=== PATIENT | female | born 1990 | race Caucasian/White ===

== ENCOUNTER 2020-12-05 15:00 | Outpatient (CLI) | payer OTHER, SELFPAY | END 2020-12-05 15:01 | disposition home or self-care (01) | LOC: ANHCOVIDVC 15:01 | DX: Z23 Encounter for immunization (principal) | CPT/HCPCS: 0001A; 91300 ==

== ENCOUNTER 2020-12-26 14:55 | Outpatient (CLI) | payer OTHER, SELFPAY | END 2020-12-26 14:56 | disposition home or self-care (01) | LOC: ANHCOVIDVC 14:55 | DX: Z23 Encounter for immunization (principal) | CPT/HCPCS: 0002A; 91300 ==

== ENCOUNTER 2024-01-19 09:50 | Emergency (ER) | payer OTHER, SELFPAY ==
[2024-01-19] VITALS (15 sets, daily range): BP systolic 143–149; BP diastolic 98; PULSE 79–97; RESP 14–24; TEMP 36.8; O2SAT 97–100
--- NOTE | ~2024-01-19 | XR_ITS ---
EXAMINATION: XR chest 2V DATE: 01/19/2024 10:32 INDICATION: Left chest pain. TECHNIQUE: Frontal and lateral views of the chest were obtained. COMPARISON: None. FINDINGS: There is no pneumonia, pleural effusion, or pneumothorax. The heart size is normal. IMPRESSION: 1. No acute cardiopulmonary disease. Reviewed, dictated and finalized at location A.
--- NOTE | 2024-01-19 10:00 | ECG_ITS ---
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 Measurements Intervals [place] Rate: 81 P: 18 [place]: 156 QRS: 15 QRSD: 108 T: 2 QT: 377 QTc: 439 Interpretive Statements SINUS RHYTHM BORDERLINE R WAVE PROGRESSION, ANTERIOR LEADS HIGH LATERAL INFARCT, AGE INDETERMINATE BORDERLINE T WAVE ABNORMALITIES- ANTEROLAT/INF LEADS BASELINE ARTIFACT- I, II, III, AVR, AVL, AVF, V1-V2 BORDERLIEN ECG No previous ECG available for comparison Electronically Signed On 01-20-2024 08:50:42 CDT by Mick Peace D.O.
[2024-01-19 10:26] LABS: Basophils Percent Auto 0.5 % (0.2-1.2); Eosinophils Percent Auto 0.4 % (0-4.4); Hematocrit 37.6 % (37.0-47.0); Hemoglobin 12.5 g/dL (12.0-15.0); Immature Granulocyte Absolute 0.01 K/mm3 (0.00-0.031); Immature Granulocyte Percent A 0.1 % (0-0.5); Lymphocytes Absolute Auto 1.83 K/mm3 (0.9-3.2); Lymphocytes Percent Auto 22.5 % (18.3-44.2); Mean Corpuscular HGB Conc 33.2 g/dl (32-36); Mean Corpuscular Hemoglobin 30.9 pg (26-34); Mean Corpuscular Volume 92.8 fl (80-100); Mean Platelet Volume 10.3 fl (7.4-10.4); Monocytes Absolute Auto 0.4 K/mm3 (0.1-0.6); Monocytes Percent Auto 5.4 % (2.6-8.5); Neutrophils Absolute Auto 5.8 K/mm3 (1.3-6.7); Neutrophils Percent Auto 71.1 % (45.5-73.1); Platelet Count Result 336 k/mm3 (150-375); Red Blood Count 4.05 M/mm3 (4.2-5.4); Red Cell Distribution Width 12.4 % (11.5-14.5); White Blood Count 8.2 K/mm3 (4.5-10.0)
--- NOTE | 2024-01-19 10:30 | ED.CHESTPAIN ---
HPI - Chest Pain General Chief Complaint: Chest Pain Stated Complaint: upper left chest pain Time Seen by Provider: 01/19/24 10:01 Source: patient Mode of arrival: ambulatory Limitations: no limitations History of Present Illness HPI narrative: This is a 33 year old female that presents to the ER for left sided chest pain ongoing since last night. Reports she had an episode of vomiting after eating last night. Shortly after she noted some left sided chest discomfort. The pain is achy and intermittent in nature. No known alleviating or exacerbating factors. No other associated symptoms. Denies fever, cough, shortness of breath or lower extremity edema. Related Data Allergies Allergy/AdvReac Type Severity Reaction Status Date / Time No Known Allergies Allergy Verified 01/19/24 10:47 Review of Systems Review of Systems: CONSTITUTIONAL: Denies fever CARDIOVASCULAR: Reports chest pain. Denies edema. RESPIRATORY: Denies cough or dyspnea. GASTROINTESTINAL: Reports nausea and vomiting. Denies abdominal pain All systems reviewed & are unremarkable except as noted in HPI and below PMFSH Past Medical History Medical History (Updated 01/19/24 @ 12:25 by Adelita Middleton PA-C) No active medical problems Social History Social History (Updated 01/19/24 @ 10:43 by Adelita Middlteon PA-C) Smoking status: Never smoker Exam Narrative: GENERAL: Well-appearing, well-nourished, and in no acute distress. HEAD: Normocephalic, atraumatic. EYES: EOMI. NECK: Supple. No adenopathy or masses. No JVD CHEST: Clear to auscultation. No respiratory distress. No wheezes rales or rhonchi HEART: Regular rate and rhythm. No murmur heard. Normal peripheral pulses. ABDOMEN: Soft, nontender, nondistended, normal active bowel sounds. EXTREMITIES: Normal range of motion. No edema. SKIN: Warm, dry, no rash. NEURO: No focal deficits. Alert and oriented x3. PSYCH: Normal mood and affect Course Course Emergency Course: Patient and family updated on workup and agree with plan of care Vital Signs Vital signs: Vital Signs Temperature 98.2 F 01/19/24 09:54 Pulse Rate 93 01/19/24 09:54 Respiratory Rate 14 01/19/24 09:54 Blood Pressure 149/98 H 01/19/24 09:54 Pulse Oximetry 100 01/19/24 09:54 Oxygen Delivery Room Air 01/19/24 09:54 Temperature 98.2 F 01/19/24 09:54 Pulse Rate 93 01/19/24 09:54 Respiratory Rate 14 01/19/24 09:54 Blood Pressure 149/98 H 01/19/24 09:54 Pulse Oximetry 100 01/19/24 09:57 Oxygen Delivery Room Air 01/19/24 09:57 MDM - Chest Pain MDM Narrative Medical decision making narrative: Patient presents to the emergency department for left-sided chest pain ongoing since last night. She is afebrile and nontoxic appearing. Her vitals are stable. CBC without concerning findings. Metabolic panel with mild hypokalemia. Magnesium is normal. Patient's potassium was replaced. Lipase is normal. EKG without acute ST changes and baseline troponin is negative. Chest x-ray without acute cardiopulmonary abnormality. D-dimer is not elevated. Patient and family were updated on workup and agree with plan of care. Her heart score is 1. She is to follow up with primary provider. She was given warnings to return to the ER Differential Diagnosis Differential diagnosis: Likely stable angina, atypical chest pain, costochondritis and other ( muscle strain) Lab Data Attestation: I reviewed the patient's lab results. 01/19/24 10:21 01/19/24 10:21 Labs: Lab Results 01/19/24 Range/Units 10:21 WBC 8.2 (4.5-10.0) K/mm3 RBC 4.05 L (4.2-5.4) M/mm3 Hgb 12.5 (12.0-15.0) g/dL Hct 37.6 (37.0-47.0) % MCV 92.8 (80-100) fl MCH 30.9 (26-34) pg MCHC 33.2 (32-36) g/dl RDW 12.4 (11.5-14.5) % Plt Count 336 (150-375) k/mm3 MPV 10.3 (7.4-10.4) fl Immature Gran % (Auto) 0.1 (0-0.5) % Neut % (Auto) 71.1 (45.5-73.1) % Lymph % (Auto) 22.5
[2024-01-19 10:37] LABS: Alanine Aminotransferase 11 U/L (6-35); Albumin Level 4.8 g/dL (3.5-5.1); Alkaline Phosphatase 59 U/L (38-126); Anion Gap 10 mmol/L (4-12); Aspartate Amino Transferase 17 U/L (14-36); Bilirubin,Total 1.1 mg/dL (0.2-1.3); Blood Urea Nitrogen 7 mg/dL (7-17); Calcium 9.4 mg/dL (8.4-10.2); Carbon Dioxide 22 mmol/L (22-30); Chloride 109 mmol/L (98-107); Estimated CRCL calculation 186 ml/min; Estimated Glomerular Filt Rate > 60; Glucose 99 mg/dL (65-110); Lipase 43 U/L (23-300); Potassium 3.3 mmol/L (3.4-5.0); Sodium 141 mmol/L (137-145)
[2024-01-19 10:41] LABS: Prothrombin Time 13.6 Seconds (11.1-14.7)
[2024-01-19 10:42] LABS: Partial Thromboplastin Time 30.7 Seconds (22.3-36.8)
[2024-01-19] MEDS: Please add drug allergy info to patient profile. 1 EACH XX (10:47)
[2024-01-19 10:48] LABS: Troponin I < 0.012 ng/mL (0.000-0.034)
[2024-01-19] MEDS: POTASSIUM CHLORIDE 20 MEQ ER TABLET 40 MEQ PO (10:51)
[2024-01-19 11:30] LABS: D Dimer 0.35 ug/mL (<0.48)
== END 2024-01-19 12:31 | disposition home or self-care (01) ==
PROVIDERS: Student in an Organized Health Care Education/Training Program; Emergency Provider Physician Assistant; PCP Family Medicine
DX: R07.89 Other chest pain (principal); E87.6 Hypokalemia
CPT/HCPCS: 36415; 71046; 80053; 83690; 83735; 84484; 85025; 85380; 85610; 85730; 93005; 99284; A9270

== ENCOUNTER 2024-01-27 06:59 | Outpatient (CLI) | payer OTHER, SELFPAY ==
[2024-01-27 07:35] LABS: Cholesterol 188 mg/dL (0-200); HDL Direct 39 mg/dL; Triglycerides 152 mg/dL (<150)
[2024-01-27 07:45] LABS: LDL Cholesterol Direct 131 mg/dL
== END 2024-01-27 07:00 | disposition home or self-care (01) ==
LOC: ANHLAB 07:00
PROVIDERS: PCP Family Medicine; Visit Provider Family Medicine
DX: R07.9 Chest pain, unspecified (principal)
CPT/HCPCS: 36415; 80061

== ENCOUNTER 2024-03-22 07:31 | Outpatient (CLI) | payer OTHER, SELFPAY ==
--- NOTE | ~2024-03-22 | CT_ITS ---
Clinical Indication: Left chest pain CT Scan of the Chest with Contrast: Technique: Contiguous sections were acquired throughout the chest after intravenous administration of 75 cc of Omnipaque 350. Dose reduction technique was used on this scan by utilizing automated exposu re control and iterative reconstruction technique. The dose-length product (DLP) was 1108.30 mGy-cm. Findings: There is no evidence of any significant mediastinal, hilar or axillary lymphadenopathy. There is no f illing defect in the pulmonary arterial tree to suggest pulmonary embolus. There is no evidence of ao rtic dissection or aneurysm. There is no evidence of pleural or pericardial effusion. The lungs are clear. No pulmonary nodules or infiltrates are noted. Images through the upper abdomen reveal no abnormalities. There is multilevel endplate irregularity i n the thoracic spine with minimal loss of height. Impression: No evidence of pulmonary embolus, aortic dissection, or aortic aneurysm. Clear lungs. Possible Scheuermann's disease the thoracic spine. Reviewed, dictated and finalized at location . Impression: No evidence of pulmonary embolus, aortic dissection, or aortic aneurysm. Clear lungs. Possible Scheuermann's disease the thoracic spine.
== END 2024-03-22 07:32 | disposition home or self-care (01) ==
PROVIDERS: PCP Family Medicine; Visit Provider Family Medicine
DX: R07.9 Chest pain, unspecified (principal)
CPT/HCPCS: 71260; Q9967

== ENCOUNTER 2024-03-27 14:35 | Outpatient (CLI) | payer OTHER, SELFPAY ==
--- NOTE | ~2024-03-27 | MR_ITS ---
MRI of the left shoulder Technique: Axial proton-density fat-sat images, coronal proton density fat-sat and T2 fat-sat images, and sagittal T1-weighted and T2 fat-sat images were acquired. Clinical History: Pain Findings: No significant AC joint degenerative change present. Coracoclavicular, coracoacromial, and coracohumeral ligaments are intact. Supraspinatus and infraspinatus tendons are intact, without partial or full-thickness tear. Subscapul dea tendon intact with moderate tendinosis. Tendon of long head of the biceps is intact. No labral tear evident. Inferior glenohumeral ligament is intact. No degenerative change or effusion of the glenohumeral join t. No fluid distention of the subacromial/subdeltoid bursa. There is focal cystic enthesopathic bauer e at the rotator cuff insertion at the greater tuberosity. No muscle atrophy or edema. Impression: Moderate subscapularis tendinosis. No rotator cuff tear or labral tear evident. Reviewed, dictated and finalized at [facility]. Impression: Moderate subscapularis tendinosis. No rotator cuff tear or labral tear evident.
== END 2024-03-27 14:36 | disposition home or self-care (01) ==
LOC: ANHIMG 14:35
PROVIDERS: PCP Family Medicine; Visit Provider Family Medicine
DX: M67.814 Other specified disorders of tendon, left shoulder (principal); R07.9 Chest pain, unspecified
CPT/HCPCS: 73221

== ENCOUNTER 2024-03-30 12:02 | Outpatient (RCR) | payer OTHER, SELFPAY ==
--- NOTE | 2024-03-30 13:37 | OPREHPOC ---
Outpatient Therapy Plan of Care This is a Multidisciplinary Plan of Care that may contain components documented by all disciplines (PT, OT, and ST.) PT Problem 1 PT Problem #1 Knowledge Deficit PT Goal 1 Goal [place] with HEP Target Visit 2 PT Problem 2 PT Problem #2 Pain PT Goal 1 Goal Report no pain greater than 2/10 for consistent days Target Visit 4 PT Goal 2 Goal Demonstrate no pain at end range of flexion and external rotation Target Visit 4 PT Problem 3 PT Problem #3 Impaired Strength PT Goal 1 Goal Improve L shoulder strength to 5/5 grossly for improved shoulder stabilization Target Visit 4
--- NOTE | 2024-03-30 13:37 | PTOPEVAL1 ---
Assessment and note entered by Aaron Robles, PT Evaluation Information Assessment Status Evaluation Diagnosis Lesion of left ICD-10 Condition Codes (PT) M25.512 Onset December 2023 Subjective Information Reports no pain past elbow or into hand. She has had history of 2 wrist surgeries for cyst removal. Denies new onset of headaches. Gets pain with pressure on shoulder but not disruptive enough to limit sleeping. 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 Reported Pain Level Pain Score 4: Self Report Assessment PT Clinical Summary Patient presents with signs and symptoms consistent with shoulder impingement and tendonitis. Was positive for impingement signs and has notable discomfort with external rotations shoulder loading. Patient showing some lingering inflammation in shoulder and would possibly benefit from anti-inflammatory regimen to define true kinematic issues from inflammatory issues. Extensive HEP issued for shoulder postural correction. Plan of Care Interventions Electrical Stimulation,Hot Pack/Cold Pack,Manual Therapy,Neuro Re-education,Therapeutic Activities, Therapeutic Exercise PT Services Indicated Yes Treatment Frequency and 1x/week for 4 weeks Duration These treatments will address the objective and functional deficits as defined above. The patient will be advanced safely and appropriately in order for the patient to progress towards his/her prior level of function. Additional exercises will be introduced and as well as a comprehensive home exercise program upon discharge, if needed, ?to ensure carryover of functional gains achieved in the clinic. This treatment plan has been reviewed and agreement upon by the patient.
== END 2024-06-28 23:59 | disposition home or self-care (01) ==
LOC: ANHPT 12:02
PROVIDERS: PCP Family Medicine; Visit Provider Nurse Practitioner Family
DX: M25.512 Pain in left shoulder (principal)
CPT/HCPCS: 97110; 97161

== ENCOUNTER 2024-04-10 08:49 | Outpatient (CLI) | payer OTHER, SELFPAY ==
--- NOTE | ~2024-04-10 | XR_ITS ---
XR wrist LT min 3V Ordering provider: Alicia Qureshi MD History: . M67.40 - Ganglion, unspecified site- HX OF TENDON SURGERY . Comparison: None. FINDINGS: BONES: No acute fracture or dislocation. No definite scaphoid fracture. JOINT SPACES: Well maintained. SOFT TISSUES: Normal. IMPRESSION: No acute osseous abnormality left wrist. Reviewed, dictated and finalized at location A.
== END 2024-04-10 08:50 | disposition home or self-care (01) ==
PROVIDERS: PCP Family Medicine; Visit Provider Plastic Surgery
DX: M67.40 Ganglion, unspecified site (principal)
CPT/HCPCS: 73110

== ENCOUNTER 2024-04-20 09:21 | Outpatient (CLI) | payer OTHER, SELFPAY ==
[2024-04-20 10:33] LABS: Basophils Percent Auto 0.4 % (0.2-1.2); Eosinophils Percent Auto 0.4 % (0-4.4); Hematocrit 38.7 % (37.0-47.0); Hemoglobin 12.1 g/dL (12.0-15.0); Immature Granulocyte Absolute 0.02 K/mm3 (0.00-0.031); Immature Granulocyte Percent A 0.2 % (0-0.5); Immature Platelet Fraction Pct 6.2 % (0.9-11.2); Lymphocytes Absolute Auto 2.06 K/mm3 (0.9-3.2); Lymphocytes Percent Auto 24.3 % (18.3-44.2); Mean Corpuscular HGB Conc 31.3 g/dl (32-36); Mean Corpuscular Hemoglobin 30.5 pg (26-34); Mean Corpuscular Volume 97.5 fl (80-100); Mean Platelet Volume 10.9 fl (7.4-10.4); Monocytes Absolute Auto 0.5 K/mm3 (0.1-0.6); Monocytes Percent Auto 6.3 % (2.6-8.5); Neutrophils Absolute Auto 5.8 K/mm3 (1.3-6.7); Neutrophils Percent Auto 68.4 % (45.5-73.1); Platelet Count Result 312 k/mm3 (150-375); Red Blood Count 3.97 M/mm3 (4.2-5.4); Red Cell Distribution Width 12.3 % (11.5-14.5); White Blood Count 8.5 K/mm3 (4.5-10.0)
[2024-04-20 11:12] LABS: Erythrocyte Sedimentation Rate 12 mm/hr (0-20)
[2024-04-20 11:27] LABS: CRP < 0.5 mg/dL (<1.0); Rheumatoid Factor < 12.0 IU/ML (<12)
[2024-04-20 11:50] LABS: Thyroid Stimulating Hormone Reflex 0.685 uIU/mL (0.465-4.68)
[2024-04-21 14:09] LABS: ANA Cascade Screen NEGATIVE (NEGATIVE)
== END 2024-04-20 09:22 | disposition home or self-care (01) ==
LOC: ANHLAB 09:23
PROVIDERS: PCP Family Medicine; Visit Provider Nurse Practitioner Family
DX: G43.909 Migraine, unspecified, not intractable, without status migrainosus (principal); R07.9 Chest pain, unspecified; M75.80 Other shoulder lesions, unspecified shoulder
CPT/HCPCS: 36415; 84443; 85025; 85055; 85652; 86038; 86140; 86225; 86235; 86364; 86430

== ENCOUNTER 2024-05-03 08:30 | Outpatient (CLI) | payer OTHER, SELFPAY ==
--- NOTE | 2024-05-03 11:00 | NEURO_ITS ---
Impression: # Complains of pain in left upper extremity. Question of Carpal Tunnel Syndrome. # Normal Nerve Conduction Study; No Carpal Tunnel Syndrome or ulnar neuropathy. # Normal needle/EMG exam. # F-waves normal and symmetrical. # Clinical correlation recommended. Nerve Conduction Studies Anti Sensory Summary Table Stim Site NR Peak (ms) P-T Amp (?V) Site1 Site2 Delta-P (ms) Dist (cm) Joselo (m/s) Left Median Anti Sensory (2-3nd Digit) Wrist 2.6 76.2 Wrist 2-3nd Digit 2.6 14.0 54 Wrist 2.6 71.2 Wrist 2-3nd Digit 2.6 14.0 54 Left Radial Anti Sensory (Base 1st Digit) Wrist 2.2 7.8 Wrist Base 1st Digit 2.2 0.0 Left Ulnar Anti Sensory (5th Digit) Wrist 2.4 87.7 Wrist 5th Digit 2.4 14.0 58 Motor Summary Table Stim Site NR Onset (ms) O-P Amp (mV) Site1 Site2 Delta-0 (ms) Dist (cm) Joselo (m/s) Left Median Motor (Abd Poll Brev) Wrist 2.7 4.1 Elbow Wrist 6.8 38.0 56 Elbow 9.5 1.6 Left Ulnar Motor (Abd Dig Minimi) Wrist 2.9 3.6 A Elbow Wrist 5.9 34.0 58 A Elbow 8.8 4.0 F Wave Studies NR F-Lat (ms) L-R F-Lat (ms) Left Median (Mrkrs) (Abd Poll Brev) 28.93 Left Ulnar (Mrkrs) (Abd Dig Min) 29.53 EMG Side Muscle Nerve Root Ins Act Fibs Amp Dur Recrt Comment Left 1stDorInt Ulnar C8-T1 Nml Nml Nml Nml Nml Left Ext Indicis Radial (Post Int) C7-8 Nml Nml Nml Nml Nml Left Ext Digitorum Radial (Post Int) C7-8 Nml Nml Nml Nml Nml Left BrachioRad Radial C5-6 Nml Nml Nml Nml Nml Left PronatorTeres Median C6-7 Nml Nml Nml Nml Nml Left Abd Poll Brev Median C8-T1 Nml Nml Nml Nml Nml Left ABD Dig Min Ulnar C8-T1 Nml Nml Nml Nml Nml Left Biceps Musculocut C5-6 Nml Nml Nml Nml Nml Left Triceps Radial C6-7-8 Nml Nml Nml Nml Nml Left Deltoid Axillary C5-6 Nml Nml Nml Nml Nml MTDD
== END 2024-05-03 08:31 | disposition home or self-care (01) ==
LOC: ANHNEURO 08:32
PROVIDERS: PCP Family Medicine; Visit Provider Plastic Surgery
DX: M67.40 Ganglion, unspecified site (principal); G56.02 Carpal tunnel syndrome, left upper limb
CPT/HCPCS: 95886; 95909

== ENCOUNTER 2024-06-01 14:13 | Outpatient (CLI) | payer OTHER, SELFPAY ==
--- NOTE | ~2024-06-01 | MR_ITS ---
EXAMINATION: MR wrist LT wo/w con DATE: 06/01/2024 15:16 INDICATION: Left wrist ganglion cyst. TECHNIQUE: Magnetic resonance imaging (MRI) of the wrist was performed without and with 20 mL MultiHa nce intravenous contrast. COMPARISON: Left wrist radiographs 04/10/2024 FINDINGS: Intrinsic ligaments: There is degeneration of scapholunate ligament without well-defined tear. The lunotriquetral ligament is intact. Triangular fibrocartilage complex (TFCC): There is a partial tear of proximal surface of triangular fibrocartilage. Extensor wrist: The extensor tendons are normal. Flexor wrist: The flexor tendons are normal. Median nerve is normal. Guyon's canal: Ulnar nerve is normal. Bones/other: Alignment is normal. No fracture. There is mild osteoarthritis of first carpometacarpal joint. IMPRESSION: 1. No ganglion cyst. Reviewed, dictated and finalized at location A. IMPRESSION: 1. No ganglion cyst.
== END 2024-06-01 14:14 | disposition home or self-care (01) ==
LOC: ANHIMG 14:17
PROVIDERS: PCP Family Medicine; Visit Provider Plastic Surgery
DX: M67.40 Ganglion, unspecified site (principal); G56.02 Carpal tunnel syndrome, left upper limb; S63.502A Unspecified sprain of left wrist, initial encounter; X58.XXXA Exposure to other specified factors, initial encounter
CPT/HCPCS: 73223; A9577

== ENCOUNTER 2024-07-19 13:40 | Outpatient (CLI) | payer OTHER, SELFPAY ==
[2024-07-19 21:05] LABS: Alanine Aminotransferase 10 U/L (6-35); Albumin Level 4.3 g/dL (3.5-5.1); Alkaline Phosphatase 61 U/L (38-126); Anion Gap 8 mmol/L (4-12); Aspartate Amino Transferase 23 U/L (14-36); Bilirubin,Total 0.8 mg/dL (0.2-1.3); Blood Urea Nitrogen 9 mg/dL (7-17); Calcium 9.2 mg/dL (8.4-10.2); Carbon Dioxide 29 mmol/L (22-30); Chloride 103 mmol/L (98-107); Estimated Glomerular Filt Rate > 60; Glucose 79 mg/dL (65-110); Potassium 3.6 mmol/L (3.4-5.0); Sodium 140 mmol/L (137-145)
[2024-07-19 21:18] LABS: Iron 78 ug/dL (37-170)
[2024-07-19 21:28] LABS: Thyroid Stimulating Hormone 0.779 uIU/mL (0.465-4.680)
[2024-07-19 21:29] LABS: Percent Iron Saturation 22 % (20-50)
[2024-07-19 21:36] LABS: Free T4 Free Thyroxine 1.11 ng/mL (0.78-2.19)
[2024-07-22 02:34] LABS: T3 Free 3.4 pg/mL (2.3-4.2)
== END 2024-07-19 13:41 | disposition home or self-care (01) ==
LOC: ANHGOSHLAB 13:41
PROVIDERS: PCP Family Medicine; Visit Provider Nurse Practitioner Family
DX: R20.2 Paresthesia of skin (principal); R07.89 Other chest pain; R03.0 Elevated blood-pressure reading, without diagnosis of hypertension; G43.909 Migraine, unspecified, not intractable, without status migrainosus; L65.9 Nonscarring hair loss, unspecified; E66.9 Obesity, unspecified
CPT/HCPCS: 36415; 80053; 82607; 82728; 83540; 83550; 84439; 84443; 84480

== ENCOUNTER 2024-08-03 08:17 | Outpatient (CLI) | payer OTHER, SELFPAY ==
--- NOTE | ~2024-08-03 | NM_ITS ---
EXAMINATION: NM stress w perf spect multi DATE: 08/03/2024 10:54 INDICATION: Chest pain TECHNIQUE: Rest images were obtained following intravenous administration of 9.0 mCi Tc99m tetrofosmi n (Myoview). The patient performed an exercise activity. At peak exercise, 32.0 mCi Tc99m tetrofosmin (Myoview) was administered intravenously, and stress images were obtained in the supine position. Ad ditional repeat post stress images were obtained in the prone position. Data was reconstructed into s hort axis and horizontal and vertical long axis SPECT images. Gated SPECT images were also obtained. COMPARISON: None. FINDINGS: There is some diaphragmatic attenuation artifact along the inferior wall on the post stress images wh ich is not seen on the post stress imaging. There is a perfusion defect along the apical to basilar a nterior wall on the rest and post stress images obtained in the supine position which normalizes at t he apical anterior and basilar anterior segments on the post stress imaging obtained in the prone pos ition with a reversibility likely related to breast attenuation artifact which is evident on the rota ting source images. The persistent moderate severity perfusion defect at the mid anterior wall of the consistent with infarct. There is additional likely artifactual decreased activity along the mid and basilar anterolateral and posterolateral clark on the post stress imaging obtained in the supine pos ition and at the basilar anterolateral segment on the rest images which normalizes on the poststress prone imaging. There is normal left ventricular chamber size, wall motion and ejection fraction. Lef t ventricular ejection fraction measures 65%. IMPRESSION: 1. Regions of artifactual decreased activity on portions of the rest and post stress imaging obtained in the supine position which normalizes on the post stress imaging obtained in the prone position. 2. Small region of moderate decreased activity at the mid anterior segment on the post stress imaging obtained in the prone position which would be consistent with infarct with differential including ad ditional residual breast attenuation artifact. 2. Left ventricular ejection fraction measuring 65%. Reviewed, dictated and finalized at location A. E VICTIM SPECIALIST IMPRESSION: 1. Regions of artifactual decreased activity on portions of the rest and post s tress imaging obtained in the supine position which normalizes on the post stre ss imaging obtained in the prone position. 2. Small region of moderate decreased activity at the mid anterior segment on t he post stress imaging obtained in the prone position which would be consistent with infarct with differential including additional residual breast attenuatio n artifact. 2. Left ventricular ejection fraction measuring 65%.
--- NOTE | 2024-08-03 08:50 | EST_ITS ---
Patient Info Name: Gavi Mcintosh Age: 34 years : 1990 Gender: Female Ht: 73 in Wt: 340 lbs BSA: 2.89 m2 Exam Date: 08/03/2024 9:19 AM Exam Location: Echo Lab Patient Status: Outpatient Admit Date: 08/03/2024 Staff Ordering Physician: Batsheva Barnett Attending Provider: Batsheva Barnett Exercise Technologist: Dora Archer RDCS Exercise Physician: Mick Peace DO Exam Type: CA stress test treadmill w NM Study Info Indications R07.89 - Other chest pain A nuclear stress test was performed. A nuclear stress test was performed. Summary 1. 1. Negative Cooper exercise stress test for ischemic ST changes by ECG criteria. 2. 2. Reduced functional capacity, achieving 7 METs of workload. 3. 3. Appropriate HR response to exercise. 4. 4. Appropriate HR recovery at 1 minute post exercise. 5. 5. Nuclear scan to follow and will be reported separately. Please correlate with it. 6. 6. Patient informed of the above results. Protocol: Cooper Stress ECG Details Stage: REST Duration (min): 0 min : 58 sec Speed (mph): 0.0 Grade (%): 0 HR (bpm): 63 SBP (mmHg): 132 DBP (mmHg): 89 METS: --- Stage: REST Duration (min): 2 min : 55 sec Speed (mph): 0.0 Grade (%): 0 HR (bpm): 79 SBP (mmHg): 132 DBP (mmHg): 89 METS: --- Stage: STAGE 1 Duration (min): 1 min : 0 sec Speed (mph): 1.7 Grade (%): 10 HR (bpm): 113 SBP (mmHg): 132 DBP (mmHg): 89 METS: --- Stage: STAGE 1 Duration (min): 2 min : 0 sec Speed (mph): 1.7 Grade (%): 10 HR (bpm): 134 SBP (mmHg): 132 DBP (mmHg): 89 METS: --- Stage: STAGE 1 Duration (min): 3 min : 0 sec Speed (mph): 1.7 Grade (%): 10 HR (bpm): 153 SBP (mmHg): 164 DBP (mmHg): 59 METS: --- Stage: STAGE 2 Duration (min): 1 min : 0 sec Speed (mph): 2.5 Grade (%): 12 HR (bpm): 161 SBP (mmHg): 164 DBP (mmHg): 59 METS: --- Stage: STAGE 2 Duration (min): 1 min : 58 sec Speed (mph): 2.5 Grade (%): 12 HR (bpm): 165 SBP (mmHg): 189 DBP (mmHg): 73 METS: --- Stage: RECOVERY Duration (min): 0 min : 1 sec Speed (mph): 1.5 Grade (%): 0 HR (bpm): 165 SBP (mmHg): 189 DBP (mmHg): 73 METS: --- Stage: RECOVERY Duration (min): 1 min : 1 sec Speed (mph): 0.0 Grade (%): 0 HR (bpm): 130 SBP (mmHg): 189 DBP (mmHg): 73 METS: --- Stage: RECOVERY Duration (min): 2 min : 1 sec Speed (mph): 0.0 Grade (%): 0 HR (bpm): 92 SBP (mmHg): 208 DBP (mmHg): 69 METS: --- Stage: RECOVERY Duration (min): 3 min : 1 sec Speed (mph): 0.0 Grade (%): 0 HR (bpm): 81 SBP (mmHg): 190 DBP (mmHg): 63 METS: --- Stage: RECOVERY Duration (min): 4 min : 1 sec Speed (mph): 0.0 Grade (%): 0 HR (bpm): 85 SBP (mmHg): 190 DBP (mmHg): 63 METS: --- Stage: RECOVERY Duration (min): 5 min : 1 sec Speed (mph): 0.0 Grade (%): 0 HR (bpm): 86 SBP (mmHg): 168 DBP (mmHg): 65 METS: --- Stage: RECOVERY Duration (min): 6 min : 1 sec Speed (mph): 0.0 Grade (%): 0 HR (bpm): 90 SBP (mmHg): 168 DBP (mmHg): 65 METS: --- Stage: RECOVERY Duration (min): 7 min : 1 sec Speed (mph): 0.0 Grade (%): 0 HR (bpm): 87 SBP (mmHg): 171 DBP (mmHg): 70 METS: --- Stage: RECOVERY Duration (min): 8 min : 1 sec Speed (mph): 0.0 Grade (%): 0 HR (bpm): 87 SBP (mmHg): 171 DBP (mmHg): 70 METS: --- Stage: RECOVERY Duration (min): 9 min : 1 sec Speed (mph): 0.0 Grade (%): 0 HR (bpm): 89 SBP (mmHg): 171 DBP (mmHg): 70 METS: --- Stage: RECOVERY Duration (min): 10 min : 1 sec Speed (mph): 0.0 Grade (%): 0 HR (bpm): 81 SBP (mmHg): 165 DBP (mmHg): 87 METS: --- Stage: RECOVERY Duration (min): 11 min : 1 sec Speed (mph): 0.0 Grade (%): 0 HR (bpm): 84 SBP (mmHg): 165 DBP (mmHg): 87 METS: --- Stage: RECOVERY Duration (min): 11 min : 20 sec Speed (mph): 0.0 Grade (%): 0 HR (bpm): 84 SBP (mmHg): 137 DBP (mmHg): 88 METS: --- Rest HR: 79 bpm Peak HR: 165 bpm Rest Sys BP: 132 mmHg Peak Sys BP: 208 mmHg Max Pred HR: 186 bpm % Max Pred HR: 89 % Target HR: 158 bpm Max RPP: 34,320 bpm*mmHg Mcgovern Score: -2 Termination Reason: Reached target heart rate or workload Cardiac Symptoms: Shortness of breath Max ST Seg Deviation: -1 mm Total Time: 4 min : 58 sec Rest Murry BP: 89 mmHg Peak Murry BP: 69 mmHg Angina Score: None Total METS: 7.1 Resting ECG Sinus rhythm. Stress ECG No ST changes. Arrhythmias None. Report Signatures
== END 2024-08-03 08:18 | disposition home or self-care (01) ==
PROVIDERS: PCP Family Medicine; Visit Provider Nurse Practitioner Family
DX: R94.31 Abnormal electrocardiogram [ECG] [EKG] (principal); R07.89 Other chest pain
CPT/HCPCS: 78452; 93017; A9502

== ENCOUNTER 2024-08-10 06:32 | Outpatient (CLI) | payer OTHER, SELFPAY ==
--- NOTE | ~2024-08-10 | MR_ITS ---
MRI of the thoracic spine Clinical History: Back pain Technique: Axial T2-weighted and gradient images, and sagittal T1-weighted, T2-weighted, and STIR lisha ges were acquired. Findings: There is mild loss of height and endplate irregularity involving T6, T7, T8, T9, T10, T11, and T12. No acute fracture or bone marrow edema evident. No subluxation evident. There is moderate to advanced degenerative disc narrowing from T6 through T12. There is a central disc protrusion at T7-T8, mildly compressing the ventral cord. There is a left par acentral disc protrusion/extrusion at T8-T9, which may impinge the exiting nerve root on the left parker e. No other significant disc bulges or herniations identified. There is facet joint arthropathy at th e lower thoracic spine. No spinal canal stenosis or cord compression at any level. Paravertebral soft tissues are unremarkable. Impression: Central disc protrusion at T7-T8, with compression of the ventral cord at this level. Left paracentral disc protrusion/extrusion at T8 and T9, which may impinge the exiting left-sided ner ve root. Mild loss of height and endplate irregularity from T6 through T12. Findings raise the possibility of Scheuermann's disease given the relatively young age of the patient. Reviewed, dictated and finalized at [facility]. L GLUER Impression: Central disc protrusion at T7-T8, with compression of the ventral cord at this level. Left paracentral disc protrusion/extrusion at T8 and T9, which may impinge the exiting left-sided nerve root. Mild loss of height and endplate irregularity from T6 through T12. Findings bejarano se the possibility of Scheuermann's disease given the relatively young age of t he patient.
== END 2024-08-10 06:33 | disposition home or self-care (01) ==
LOC: ANHIMG 06:35
PROVIDERS: PCP Family Medicine; Visit Provider Nurse Practitioner Family
DX: M51.24 Other intervertebral disc displacement, thoracic region (principal); M51.04 Intervertebral disc disorders with myelopathy, thoracic region; M48.04 Spinal stenosis, thoracic region; M51.34 Other intervertebral disc degeneration, thoracic region
CPT/HCPCS: 72146

== ENCOUNTER 2024-09-27 14:58 | Outpatient (CLI) | payer OTHER, SELFPAY ==
--- NOTE | ~2024-09-27 | XR_ITS ---
EXAMINATION: XR scoliosis survey DATE: 09/27/2024 16:04 INDICATION: Chest pain, unspecified. TECHNIQUE: Anteroposterior and lateral views of the entire spine standing were obtained. COMPARISON: Thoracic spine MRI 08/10/2024 FINDINGS: There is no limb length discrepancy. There are 12 pairs of ribs. There are 5 nonrib-bearing lumbar segments. There is 15 degrees levoscoliosis from T5 to T12 by the Alcaraz method. There is 13 de grees dextroscoliosis from T12 to L4. There is kyphosis of thoracic spine. There is mild chronic ante rior wedging of multiple vertebral bodies consistent with Schmorl's nodes. There is mild thoracic and lumbar spondylosis. IMPRESSION: 1. 15 degrees levoscoliosis from T5 to T12 and 13 degrees dextroscoliosis from T12 to L4. 2. Scheuermann disease. Reviewed, dictated and finalized at location A. WAY SIGNAL ELECTRICIAN
--- NOTE | ~2024-09-27 | XR_ITS ---
HISTORY: R07.9 - Chest pain, unspecified COMPARISON: Reference is made to a MRI examination of the thoracic spine dated 08/10/2024 TECHNIQUE: 2 views of the thoracic spine were performed. FINDINGS: No acute compression fracture is present. Bone mineralization is age-appropriate. No significant degenerative disease. IMPRESSION: Unremarkable radiographic evaluation of the thoracic spine, as detailed above. Reviewed, dictated and finalized at location A. ICATIONS SUPPORT LEAD
--- NOTE | ~2024-09-27 | XR_ITS ---
Lumbosacral Spine: AP and lateral views Clinical History: Pain Findings: The normal lordotic curve is maintained. The vertebral bodies and posterior elements are i ntact. There are minimal degenerative disc changes in the lumbar spine. There is moderate facet arthr opathy at the lower lumbar spine. The sacroiliac joints are normally outlined. Impression: Mild degenerative spondylosis overall, as above. Reviewed, dictated and finalized at location . ECTION SYSTEMS MODELER Impression: Mild degenerative spondylosis overall, as above.
--- OUTSIDE RECORDS SUMMARY | 2024-09-27 15:41 | XMS_ITS | Clinical Summary ---
Author Organization [facility] Address [address] [place] [id number] Care Team Providers Care Polygraph Operator Name Role Phone Unavailable Primary Care Provider Unavailabl e Social History Tobacco Use Types Packs/Day Years Used Date Smoking Tobacco: Never Assessed Comments Unknown Sex and Gender Information Value Date Recorded Sex Assigned at Not on file Legal Sex Female 7:01 PM CDT Gender Identity Not on file Sexual Orientation Not on file Last Filed Vital Signs Vital Sign Reading Time Taken Comments Blood Pressure 124/82 12/09/2012 7:11 AM CDT Pulse 89 12/09/2012 7:11 AM CDT Temperature - - Respiratory Rate - - Oxygen Saturation - - Inhaled Oxygen Concentration - - Weight 136.1 kg (300 lb) 12/09/2012 7:11 AM CDT Height 185.4 cm (6' 1 ) 12/09/2012 7:11 AM CDT Body Mass Index 39.58 12/09/2012 7:11 AM CDT Plan of Treatment Health Maintenance Due Date Last Done Comments Cervical Cancer Screening Pa p Smear (Age 30 to 64) Every 3 Years 1990 Annual Physical 1993 Hepatitis C 2008 DTaP, Tdap and Td Vaccines ( 1 - Tdap) 2009 Hepatitis B Vaccines (1 of 3 - 19+ 3-dose series) 2009 Cervical Cancer Screening Pa p with HPV Testing (Age 30 to 64) Every 5 Years 2020 Cervical Cancer Screening with HPV 2020 COVID-19 Vaccine (2023-2 5 season) 2024 Influenza Adult (#1) 2024 HPV Vaccines Aged Out No longer eligi ble based on patient's age to complete this topic Meningococcal B Vaccine Aged Out No l onger eligible based on patient's age to complete this topic Meningococcal Vaccine Aged Out No roberto leta eligible based on patient's age to complete this topic Pneumococcal Vaccine: Pediat rics (0 to 5 Years) and At-Risk Patients (6 to 64 Years) Aged Out No longer eligible b ased on patient's age to complete this topic RSV Immunizations Under 20 Months Aged Out No longer eligible based on patient's age to complete this topic Additional Health Concerns Infection Onset Date Last Indicated 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
--- OUTSIDE RECORDS SUMMARY | 2024-09-27 15:41 | XMS_ITS | Referral Summary ---
Author Organization [facility] Address [address] [place] [address] Care Team Providers Care Film Waxer Name Role Phone None, Physician Primary Care Provider Unavailabl e Source Comments [facility],non-owned Affiliates and Associated Physician Practices is amultiple site organization consisting of ambulatory clinics and hospital sitesin [place], [place] and [place]. This disclosure is being madepursuant to the Care Everywhere program and may not contain all information available regarding this patient. Last updated 18.[facility] Encounters Date Type Department Care Team Description 07/10/2024 12:45 PM COOK HELPER PRESERVES - 07/10/2024 11:59 PM [facility]OOK HELPER PRESERVES Hospital Encounter [facility] MRI [address] [place] [address] Susan Tao, DO Discharge Disposition: Home or Self Care 07/10/2024 12:45 PM [facility] HELPER [facility]ERVES - 07/10/2024 11:59 PM [facility]OOK HELPER PRESERVES Hospital Encounter [facility] MRI [address] [place] [address] Susan Tao, Discharge Disposition: Home or Self Care from Last 3 Months Allergies No known active allergies Medications * Be aware that medications may not be up to date on this document. Alwaysverify current medications with the patient. Medication Sig Dispensed Refills Start Date End Date Status gabapentin (Neurontin) 300 MG capsule Take 1 (one) capsule by mouth 3 times daily Active diazePAM (Valium) 2 MG tabletIndications: Claustrophobia 1 tab po 1 hour before MRI if ineffective and well tolerated can take a 2nd tab 30 minutes prior to MRI Reasons: Claustrophobia 2 tablet 06/20/2024 Active Social History Tobacco Use Types Packs/Day Years Used Date Smoking Tobacco: Never Assessed Sex and Gender Information Value Date Recorded Sex Assigned at Not on file Gender Identity Not on file Sexual Orientation Not on file Last Filed Vital Signs Vital Sign Reading Time Taken Comments Blood Pressure 128/86 06/09/2024 12:51 PM CDT Pulse 76 06/09/2024 12:51 PM CDT Temperature - - Respiratory Rate - - Oxygen Saturation 98% 06/09/2024 12:51 PM CDT Inhaled Oxygen Concentration - - Weight 157.9 kg (348 lb) 06/09/2024 12:51 PM CDT Height - - Body Mass Index - - Plan of Treatment Not on file Procedures Procedure Name Priority Date/Time Associated Diagnosis Comments MRI BRACHIAL PLEXUS WWO CONT Routine 07/10/2024 2:32 PM COOK HELPER PRESERVES Brachial plexopathy MRI CERVICAL SPINE WWO CONT Routine 07/10/2024 2:31 PM COOK HELPER PRESERVES Brachial plexopathy CREATININE - POCT INTERFACED Routine 07/10/2024 1:11 PM COOK HELPER PRESERVES from Last 3 Months Results * MRI Brachial Plexus Wwo Cont (07/10/2024 2:32 PM COOK HELPER PRESERVES) Anatomical Region Laterality Modality Upper Extremity Magnetic Resonan ce Angiography 07/12/2024 2:21 PM COOK HELPER PRESERVES Impressions 07/12/2024 3:01 PM COOK HELPER PRESERVES IMPRESSION: 1. Cervical spine: No abnormal spinal cord signal. No significant degenerative changes noted. No areas of abnormal contrast enhancement. 2. Brachial plexus: Bilateral brachial plexus appears symmetric in signal. No no evidence of masses or mass effect on the visualized portions of the base of the left brachial plexus. No significant abnormal enlargement or enhancement involving the left brachial plexus. > Interpreting Provider: Liv Kirby MD on 07/12/2024 3:01 PM Narrative 07/12/2024 3:01 PM [facility] HEL[facility] PRESERVES PROCEDURE: MRI CERVICAL SPINE WWO CONT, MRI BRACHIAL PLEXUS WWO CONT, DATE/TIME OF EXAM: 07/10/2024 2:32 PM, LOCATION [facility] INDICATION: G54.0: Brachial plexopathy ADDITIONAL CLINICAL INFORMATION: Ordering Provider Reason For Exam: Technologist Note: Additional: COMPARISON: None. TECHNIQUE: TECHNIQUE: MRI of the cervical spine was performed prior to and following the uneventful administration of [' intravenous gadolinium contrast according to standard protocol.MRI of the left chest detailing the brachial plexus was performed prior to and following the uneventful administration of intravenous gadolinium contrast according to a brachial plexus protocol utilizing a multiarray coil. CONTRAST: GADOBUTROL 1 MMOL/ML IV SSM SO:10 mL FINDINGS: The alignment is normal. Vertebral bodies are normal in height without evidence of compression fractures. Heterogeneous marrow signal with areas of fatty replacement. The craniocervical junction and visualized portions of the posterior fossa appear normal. The spinal cord appears normal. No abnormal enhancement is identified.No significant disc height loss. Incidental note of small nodules in the thyroid gland with the largest nodule measuring approximately 1.3 cm. Prominent lingual tonsils most likely reactive. No acute soft tissue abnormality is identified. Normal flow voids are identified in the vertebral arteries. C2-3: There is no disc bulge. There is no central canal stenosis. There is no significant facet osteoarthritis. There is no uncovertebral joint osteoarthritis. There is no neural foraminal stenosis. C3-4: Mild diffuse disc bulge slightly eccentric to the right. There is no central canal stenosis. There is no significant facet osteoarthritis. There is mild right uncovertebral joint osteoarthritis. There is mild right neural foraminal stenosis. C4-5: Minimal posterior disc bulge. There is no central canal stenosis. There is no significant facet osteoarthritis. There is mild to minimal right uncovertebral joint osteoarthritis. There is mild to minimal right neural foraminal stenosis. C5-6: Minimal posterior disc bulge. There is no central canal stenosis. There is no significant facet osteoarthritis. There is mild bilateral uncovertebral joint osteoarthritis. There is mild right neural foraminal stenosis. C6-7: There is no disc bulge. There is no central canal stenosis. There is no facet osteoarthritis. There is no uncovertebral joint osteoarthritis. There is no neural foraminal stenosis. C7-T1: There is no disc bulge. There is no central canal stenosis. There is no facet osteoarthritis. There is no uncovertebral joint osteoarthritis. There is no neural foraminal stenosis. Brachial plexus: The nerve roots, trunks, divisions, and cords of the left brachial plexus normal in symmetric compared to the right. No masses or mass effect is seen and the nerve bundles appear intrinsically normal. There is normal muscle bulk and normal signal in the visualized portions of the left rotator cuff. There is normal musculature in the left chest wall. Normal flow voids are seen in the right subclavian artery with normal flow on time of flight imaging. Procedure Note Liv Kirby MD - 07/12/2024 PROCEDURE: MRI CERVICAL SPINE WWO CONT, MRI BRACHIAL PLEXUS WWO CONT, DATE/TIME OF EXAM: 07/10/2024 2:32 PM, LOCATION [facility] INDICATION: G54.0: Brachial plexopathy ADDITIONAL CLINICAL INFORMATION: Ordering Provider Reason For Exam: Technologist Note: Additional: COMPARISON: None. TECHNIQUE: TECHNIQUE: MRI of the cervical spine was performed prior to andfollowing the uneventful administration of [' intravenous gadolinium contrast according to standard protocol.MRI of the left chest detailing thebrachial plexus was performed prior to and following the uneventfuladministration of intravenous gadolinium contrast according to a brachial plexusprotocol utilizing a multiarray coil. CONTRAST: GADOBUTROL 1 MMOL/ML IV SSM SO:10 mL FINDINGS: The alignment is normal. Vertebral bodies are normal in height without evidence of compression fractures. Heterogeneous marrow signal withareas of fatty replacement. The craniocervical junction and visualizedportions of the posterior fossa appear normal. The spinal cord appears normal. No abnormal enhancement is identified.No significant disc height loss. Incidental note of small nodules in the thyroid gland with the largest nodule measuring approximately 1.3 cm. Prominent lingual tonsils most likely reactive. No acute soft tissue abnormality is identified. Normal flow voids are identified in the vertebral arteries. C2-3: There is no disc bulge. There is no central canal stenosis. Thereis no significant facet osteoarthritis. There is no uncovertebral joint osteoarthritis. There is no neural foraminal stenosis. C3-4: Mild diffuse disc bulge slightly eccentric to the right. There isno central canal stenosis. There is no significant facet osteoarthritis.There is mild right uncovertebral joint osteoarthritis. There is mild right neural foraminal stenosis. C4-5: Minimal posterior disc bulge. There is no central canal stenosis. There is no significant facet osteoarthritis. There is mild to minimal right uncovertebral joint osteoarthritis. There is mild to minimal right neural foraminal stenosis. C5-6: Minimal posterior disc bulge. There is no central canal stenosis. There is no significant facet osteoarthritis. There is mild bilateral uncovertebral joint osteoarthritis. There is mild right neural foraminal stenosis. C6-7: There is no disc bulge. There is no central canal stenosis. Thereis no facet osteoarthritis. There is no uncovertebral joint osteoarthritis. There is no neural foraminal stenosis. C7-T1: There is no disc bulge. There is no central canal stenosis. Thereis no facet osteoarthritis. There is no uncovertebral joint osteoarthritis. There is no neural foraminal stenosis. Brachial plexus: The nerve roots, trunks, divisions, and cords of the left brachialplexus normal in symmetric compared to the right. No masses or mass effect isseen and the nerve bundles appear intrinsically normal. There is normalmuscle bulk and normal signal in the visualized portions of the left rotatorcuff. There is normal musculature in the left chest wall. Normal flow voidsare seen in the right subclavian artery with normal flow on time of flight imaging. IMPRESSION: 1. Cervical spine: No abnormal spinal cord signal. No significant degenerative changes noted. No areas of abnormal contrast enhancement. 2. Brachial plexus: Bilateral brachial plexus appears symmetric insignal. No no evidence of masses or mass effect on the visualized portions ofthe base of the left brachial plexus. No significant abnormal enlargement or enhancement involving the left brachial plexus. > Interpreting Provider: Liv Kirby MD on 07/12/2024 3:01 PM Susan Tao DO MR ORDERABLES * MRI Cervical Spine Wwo Cont (07/10/2024 2:31 PM [facility]OOK HELPER PRESERVES) Anatomical Region Laterality Modality Spine Magnetic Resonan ce Angiography 07/12/2024 2:21 PM [facility]ERVES Impressions 07/12/2024 3:01 PM [facility] HEL[facility] PRESERVES IMPRESSION: 1. Cervical spine: No abnormal spinal cord signal. No significant degenerative changes noted. No areas of abnormal contrast enhancement. 2. Brachial plexus: Bilateral brachial plexus appears symmetric in signal. No no evidence of masses or mass effect on the visualized portions of the base of the left brachial plexus. No significant abnormal enlargement or enhancement involving the left brachial plexus. > Interpreting Provider: Liv Kirby MD on 07/12/2024 3:01 PM Narrative 07/12/2024 3:01 PM [facility] PROCEDURE: MRI CERVICAL SPINE WWO CONT, MRI BRACHIAL PLEXUS WWO CONT, DATE/TIME OF EXAM: 07/10/2024 2:32 PM, LOCATION [facility] INDICATION: G54.0: Brachial plexopathy ADDITIONAL CLINICAL INFORMATION: Ordering Provider Reason For Exam: Technologist Note: Additional: COMPARISON: None. TECHNIQUE: TECHNIQUE: MRI of the cervical spine was performed prior to and following the uneventful administration of [' intravenous gadolinium contrast according to standard protocol.MRI of the left chest detailing the brachial plexus was performed prior to and following the uneventful administration of intravenous gadolinium contrast according to a brachial plexus protocol utilizing a multiarray coil. CONTRAST: GADOBUTROL 1 MMOL/ML IV SSM SO:10 mL FINDINGS: The alignment is normal. Vertebral bodies are normal in height without evidence of compression fractures. Heterogeneous marrow signal with areas of fatty replacement. The craniocervical junction and visualized portions of the posterior fossa appear normal. The spinal cord appears normal. No abnormal enhancement is identified.No significant disc height loss. Incidental note of small nodules in the thyroid gland with the largest nodule measuring approximately 1.3 cm. Prominent lingual tonsils most likely reactive. No acute soft tissue abnormality is identified. Normal flow voids are identified in the vertebral arteries. C2-3: There is no disc bulge. There is no central canal stenosis. There is no significant facet osteoarthritis. There is no uncovertebral joint osteoarthritis. There is no neural foraminal stenosis. C3-4: Mild diffuse disc bulge slightly eccentric to the right. There is no central canal stenosis. There is no significant facet osteoarthritis. There is mild right uncovertebral joint osteoarthritis. There is mild right neural foraminal stenosis. C4-5: Minimal posterior disc bulge. There is no central canal stenosis. There is no significant facet osteoarthritis. There is mild to minimal right uncovertebral joint osteoarthritis. There is mild to minimal right neural foraminal stenosis. C5-6: Minimal posterior disc bulge. There is no central canal stenosis. There is no significant facet osteoarthritis. There is mild bilateral uncovertebral joint osteoarthritis. There is mild right neural foraminal stenosis. C6-7: There is no disc bulge. There is no central canal stenosis. There is no facet osteoarthritis. There is no uncovertebral joint osteoarthritis. There is no neural foraminal stenosis. C7-T1: There is no disc bulge. There is no central canal stenosis. There is no facet osteoarthritis. There is no uncovertebral joint osteoarthritis. There is no neural foraminal stenosis. Brachial plexus: The nerve roots, trunks, divisions, and cords of the left brachial plexus normal in symmetric compared to the right. No masses or mass effect is seen and the nerve bundles appear intrinsically normal. There is normal muscle bulk and normal signal in the visualized portions of the left rotator cuff. There is normal musculature in the left chest wall. Normal flow voids are seen in the right subclavian artery with normal flow on time of flight imaging. Procedure Note Liv Kirby MD - 07/12/2024 PROCEDURE: MRI CERVICAL SPINE WWO CONT, MRI BRACHIAL PLEXUS WWO CONT, DATE/TIME OF EXAM: 07/10/2024 2:32 PM, LOCATION [facility] INDICATION: G54.0: Brachial plexopathy ADDITIONAL CLINICAL INFORMATION: Ordering Provider Reason For Exam: Technologist Note: Additional: COMPARISON: None. TECHNIQUE: TECHNIQUE: MRI of the cervical spine was performed prior to andfollowing the uneventful administration of [' intravenous gadolinium contrast according to standard protocol.MRI of the left chest detailing thebrachial plexus was performed prior to and following the uneventfuladministration of intravenous gadolinium contrast according to a brachial plexusprotocol utilizing a multiarray coil. CONTRAST: GADOBUTROL 1 MMOL/ML IV SSM SO:10 mL FINDINGS: The alignment is normal. Vertebral bodies are normal in height without evidence of compression fractures. Heterogeneous marrow signal withareas of fatty replacement. The craniocervical junction and visualizedportions of the posterior fossa appear normal. The spinal cord appears normal. No abnormal enhancement is identified.No significant disc height loss. Incidental note of small nodules in the thyroid gland with the largest nodule measuring approximately 1.3 cm. Prominent lingual tonsils most likely reactive. No acute soft tissue abnormality is identified. Normal flow voids are identified in the vertebral arteries. C2-3: There is no disc bulge. There is no central canal stenosis. Thereis no significant facet osteoarthritis. There is no uncovertebral joint osteoarthritis. There is no neural foraminal stenosis. C3-4: Mild diffuse disc bulge slightly eccentric to the right. There isno central canal stenosis. There is no significant facet osteoarthritis.There is mild right uncovertebral joint osteoarthritis. There is mild right neural foraminal stenosis. C4-5: Minimal posterior disc bulge. There is no central canal stenosis. There is no significant facet osteoarthritis. There is mild to minimal right uncovertebral joint osteoarthritis. There is mild to minimal right neural foraminal stenosis. C5-6: Minimal posterior disc bulge. There is no central canal stenosis. There is no significant facet osteoarthritis. There is mild bilateral uncovertebral joint osteoarthritis. There is mild right neural foraminal stenosis. C6-7: There is no disc bulge. There is no central canal stenosis. Thereis no facet osteoarthritis. There is no uncovertebral joint osteoarthritis. There is no neural foraminal stenosis. C7-T1: There is no disc bulge. There is no central canal stenosis. Thereis no facet osteoarthritis. There is no uncovertebral joint osteoarthritis. There is no neural foraminal stenosis. Brachial plexus: The nerve roots, trunks, divisions, and cords of the left brachialplexus normal in symmetric compared to the right. No masses or mass effect isseen and the nerve bundles appear intrinsically normal. There is normalmuscle bulk and normal signal in the visualized portions of the left rotatorcuff. There is normal musculature in the left chest wall. Normal flow voidsare seen in the right subclavian artery with normal flow on time of flight imaging. IMPRESSION: 1. Cervical spine: No abnormal spinal cord signal. No significant degenerative changes noted. No areas of abnormal contrast enhancement. 2. Brachial plexus: Bilateral brachial plexus appears symmetric insignal. No no evidence of masses or mass effect on the visualized portions ofthe base of the left brachial plexus. No significant abnormal enlargement or enhancement involving the left brachial plexus. > Interpreting Provider: Liv Kirby MD on 07/12/2024 3:01 PM Susan Tao DO MR ORDERABLES * CREATININE - POCT INTERFACED (07/10/2024 1:11 PM [facility] PRESERVES) Creatinine POCT 0.55 0.30 - 1.30 mg/dL 07/10/2024 1:13 PM [facility] PRESERVES [facility] Comment:Range ok for MRI eGFR >90 >=90 mL/min/1.7 3 m2 07/10/2024 1:13 PM [facility] HEL[facility] PRES[facility]ES [facility] Blood BLOOD SPECIMEN / Unknown 07/10/2024 1:11 PM [facility]ERVES 07/10/2024 1:13 PM [facility]ES Susan Tao DO LAB - POINT OF CARE ORDERABLES [facility] [address] [place] [address], [place] [phone] from Last 3 Months Care Teams Film Waxer Relationship Specialty Start Date End Date None, Physician [address] [place] [address] PCP - General 06/09/24
--- OUTSIDE RECORDS SUMMARY | 2024-09-27 15:41 | XMS_ITS | Patient Health Summary ---
Author Organization [facility] [employer] Address [address] [place] [address] Care Team Providers Care Parking Lot Supervisor Name Role Phone None, Physician Primary Care Provider Unavailabl e Note from [facility] [employer] [facility],non-owned Affiliates and Associated Physician Practices is amultiple site organization consisting of ambulatory clinics and hospital sitesin [place], [place], [place] and [place]. This disclosure is being madepursuant to the Care Everywhere program and may not contain all information available regarding this patient. Last updated 18.[facility] [employer] Allergies No known active allergies Medications * Be aware that medications may not be up to date on this document. Alwaysverify current medications with the patient. * gabapentin (Neurontin) 300 MG capsule Take 1 (one) capsule by mouth 3 times daily * diazePAM (Valium) 2 MG tablet(Started 06/20/2024) 1 tab po 1 hour before MRI if ineffective and well tolerated can take a 2nd tab 30 minutes prior toMRI Reasons: Claustrophobia Social History Tobacco Use Types Packs/Day Years [...] - - Body Mass Index - - Procedures * MRI BRACHIAL PLEXUS WWO CONT(Performed 07/10/2024) Performed for Brachial plexopathy * MRI CERVICAL SPINE WWO CONT(Performed 07/10/2024) Performed for Brachial plexopathy * CREATININE - POCT INTERFACED(Performed 07/10/2024) Results * MRI Brachial Plexus Wwo Cont (07/10/2024 2:32 PM DEPARTMENT ADMINISTRATOR) Anatomical Region Laterality Modality Upper Extremity Magnetic Resonan ce Angiography 07/12/2024 2:21 PM DEPARTMENT ADMINISTRATOR Impressions 07/12/2024 3:01 PM DEPARTMENT ADMINISTRATOR IMPRESSION: 1. Cervical spine: No abnormal spinal [...] 07/12/2024 3:01 PM Narrative 07/12/2024 3:01 PM DEPARTMENT ADMINISTRATOR PROCEDURE: MRI CERVICAL SPINE WWO CONT, MRI BRACHIAL PLEXUS WWO CONT, DATE/TIME OF EXAM: 07/10/2024 2:32 PM, LOCATION [facility] INDICATION: G54.0: Brachial plexopathy ADDITIONAL CLINICAL INFORMATION: [...] DATE/TIME OF EXAM: 07/10/2024 2:32 PM, LOCATION [facility] INDICATION: G54.0: Brachial plexopathy ADDITIONAL CLINICAL INFORMATION: [...] Cervical Spine Wwo Cont (07/10/2024 2:31 PM DEPARTMENT ADMINISTRATOR) Anatomical Region Laterality Modality Spine Magnetic Resonan ce Angiography 07/12/2024 2:21 PM DEPARTMENT ADMINISTRATOR Impressions 07/12/2024 3:01 PM DEPARTMENT ADMINISTRATOR IMPRESSION: 1. Cervical spine: No abnormal spinal [...] 07/12/2024 3:01 PM Narrative 07/12/2024 3:01 PM DEPARTMENT ADMINISTRATOR PROCEDURE: MRI CERVICAL SPINE WWO CONT, MRI BRACHIAL PLEXUS WWO CONT, DATE/TIME OF EXAM: 07/10/2024 2:32 PM, LOCATION [facility] INDICATION: G54.0: Brachial plexopathy ADDITIONAL CLINICAL INFORMATION: [...] DATE/TIME OF EXAM: 07/10/2024 2:32 PM, LOCATION [facility] INDICATION: G54.0: Brachial plexopathy ADDITIONAL CLINICAL INFORMATION: [...] CREATININE - POCT INTERFACED (07/10/2024 1:11 PM DEPARTMENT ADMINISTRATOR) Creatinine POCT 0.55 0.30 - 1.30 mg/dL 07/10/2024 1:13 PM DEPARTMENT ADMINISTRATOR [facility] Comment:Range ok for MRI eGFR >90 >=90 mL/min/1.7 3 m2 07/10/2024 1:13 PM DEPARTMENT ADMINISTRATOR [facility] Blood BLOOD SPECIMEN / Unknown 07/10/2024 1:11 PM DEPARTMENT ADMINISTRATOR 07/10/2024 1:13 PM DEPARTMENT ADMINISTRATOR Susan Tao DO LAB - POINT OF CARE ORDERABLES Performing Organization Address City/State/[facility] Co de Phone Number [facility] [address] [place] [address], [facility] [phone] Care Teams Parking Lot Supervisor Relationship Specialty Start Date End Date None, Physician [address] [place] [address] PCP - General 06/09/24
--- OUTSIDE RECORDS SUMMARY | 2024-09-27 15:41 | XMS_ITS | Clinical Summary ---
Author Organization [facility] Address [address] [place] [address] Care Team Providers Care Sterile Supply Technician Name Role Phone None, Physician Primary Care Provider Unavailabl e Source Comments [facility],non-owned Affiliates and Associated Physician Practices is amultiple site organization consisting of ambulatory clinics and hospital sitesin [place], [place], [place] and [place]. This disclosure is being madepursuant to the Care Everywhere program and may not contain all information available regarding this patient. Last updated 18.[facility] Allergies No known active allergies Medications * [...] MRI Reasons: Claustrophobia 2 tablet 06/20/2024 Active Encounters Date Type Department Care Team Description 07/10/2024 12:45 PM LYE MACHINE OPERATOR - 07/10/2024 11:59 PM LYE MACHINE OPERATOR Hospital Encounter [facility] MRI [address] [place] [address] Susan Tao, DO Discharge Disposition: Home or Self Care 07/10/2024 12:45 PM LYE MACHINE OPERATOR - 07/10/2024 11:59 PM LYE MACHINE OPERATOR Hospital Encounter [facility] MRI [address] [place] [address] Susan Tao, DO Discharge Disposition: Home or Self Care from Last 3 Months Social History Tobacco Use Types Packs/Day Years [...] Mass Index - - Plan of Treatment Health Maintenance Due Date Last Done Comments PAP SMEAR 1990 HIV SCREENING 2005 HEPATITIS C SCREENING 07/04/2008 DTAP/TDAP/TD VACCINES (1 - Tdap) 2009 HEPATITIS B VACCINE (1 of 3 - 19+ 3-dose series) 2009 COVID-19 VACCINE ( - 2023-2 5 season) 2024 DEPRESSION SCREENING 08/23/2024 ZOSTER VACCINE (1 of 2) 2040 INFLUENZA VACCINE Completed 06/14/2024 HIB VACCINE Aged Out No longer eligi ble based on patient's age to complete this topic HPV VACCINE Aged Out No longer eligi ble based on patient's age to complete this topic MENINGOCOCCAL (Group B) VACCINE Aged Out No longer eligible based on patient's age to complete this topic MENINGOCOCCAL VACCINE Aged Out No roberto leta eligible based on patient's age to complete this topic PNEUMOCOCCAL VACCINE Aged Out No long er eligible based on patient's age to complete this topic Procedures Procedure Name Priority Date/Time Associated Diagnosis Comments MRI BRACHIAL PLEXUS WWO CONT Routine 07/10/2024 2:32 PM LYE MACHINE OPERATOR Brachial plexopathy MRI CERVICAL SPINE WWO CONT Routine 07/10/2024 2:31 PM LYE MACHINE OPERATOR Brachial plexopathy CREATININE - POCT INTERFACED Routine 07/10/2024 1:11 PM LYE MACHINE OPERATOR from Last 3 Months Results * MRI Brachial Plexus Wwo Cont (07/10/2024 2:32 PM LYE MACHINE OPERATOR) Anatomical Region Laterality Modality Upper Extremity Magnetic Resonan ce Angiography 07/12/2024 2:21 PM LYE MACHINE OPERATOR Impressions 07/12/2024 3:01 PM LYE MACHINE OPERATOR IMPRESSION: 1. Cervical spine: No abnormal spinal [...] 07/12/2024 3:01 PM Narrative 07/12/2024 3:01 PM LYE MACHINE OPERATOR PROCEDURE: MRI CERVICAL SPINE WWO CONT, MRI BRACHIAL PLEXUS WWO CONT, DATE/TIME OF EXAM: 07/10/2024 2:32 PM, LOCATION [facility] INDICATION: G54.0: Brachial plexopathy ADDITIONAL CLINICAL [...] DATE/TIME OF EXAM: 07/10/2024 2:32 PM, LOCATION [facility] INDICATION: G54.0: Brachial plexopathy ADDITIONAL CLINICAL [...] Cervical Spine Wwo Cont (07/10/2024 2:31 PM LYE MACHINE OPERATOR) Anatomical Region Laterality Modality Spine Magnetic Resonan ce Angiography 07/12/2024 2:21 PM LYE MACHINE OPERATOR Impressions 07/12/2024 3:01 PM LYE MACHINE OPERATOR IMPRESSION: 1. Cervical spine: No abnormal spinal [...] 07/12/2024 3:01 PM Narrative 07/12/2024 3:01 PM LYE MACHINE OPERATOR PROCEDURE: MRI CERVICAL SPINE WWO CONT, MRI BRACHIAL PLEXUS WWO CONT, DATE/TIME OF EXAM: 07/10/2024 2:32 PM, LOCATION [facility] INDICATION: G54.0: Brachial plexopathy ADDITIONAL CLINICAL [...] DATE/TIME OF EXAM: 07/10/2024 2:32 PM, LOCATION [facility] INDICATION: G54.0: Brachial plexopathy ADDITIONAL CLINICAL [...] CREATININE - POCT INTERFACED (07/10/2024 1:11 PM LYE MACHINE OPERATOR) Creatinine POCT 0.55 0.30 - 1.30 mg/dL 07/10/2024 1:13 PM LYE MACHINE OPERATOR [facility] Comment:Range ok for MRI eGFR >90 >=90 mL/min/1.7 3 m2 07/10/2024 1:13 PM LYE MACHINE OPERATOR [facility] Blood BLOOD SPECIMEN / Unknown 07/10/2024 1:11 PM LYE MACHINE OPERATOR 07/10/2024 1:13 PM LYE MACHINE OPERATOR Susan Tao DO LAB - POINT OF CARE ORDERABLES Performing Organization Address [facility] Co de Phone Number [facility] [address] [place] [address], [facility] [phone] from Last 3 Months Care Teams Sterile Supply Technician Relationship Specialty Start Date End Date None, Physician [address] [place] [address] PCP - General 06/09/24
== END 2024-09-27 14:59 | disposition home or self-care (01) ==
LOC: ANHIMG 15:03
PROVIDERS: PCP Family Medicine; Visit Provider Nurse Practitioner Family
DX: M51.34 Other intervertebral disc degeneration, thoracic region (principal); M47.896 Other spondylosis, lumbar region; M41.84 Other forms of scoliosis, thoracic region; M42.04 Juvenile osteochondrosis of spine, thoracic region
CPT/HCPCS: 72072; 72082; 72100

== ENCOUNTER 2024-11-09 15:30 | Outpatient (RCR) | payer OTHER, SELFPAY ==
--- NOTE | 2024-10-04 13:00 | PTOPEVAL1 ---
Assessment and note entered by Nat Strauss, PT Evaluation Information Assessment Status Evaluation Diagnosis thoracic kyphosis ICD-10 Condition Codes (PT) Pain in Thoracic Spine M54.6,Weakness R53.1 Other ICD-10 Condition Codes ( Abnormal posture PT) Onset January 2024 Subjective Information Pt reports this began about 8-9 months ago Laying is the worst, sitting is the next worse Effecting upper back, left shoulder, left arm. MRI shows multi-level wedging T6-12 and disc protrusion Pain in the left arm can change, tingling in the fingers, or different patterns on the arm. No trends in activities for increasing pain Currently taking 300mg breakfast and lunch and 600 mg for sleep Duloxetine 60 mg once daily Has tried a muscle relaxer early on and this didn' t help any and tried a prednisone pack in the very beginning and this didn't help. Reported Pain Level Pain Score 0,2: Self Report Assessment PT Clinical Summary Pt presents with history of left shoulder, LUE, and thoracic back pain on left that began approx 8 months ago. Cardiac work-up done with no issues. MRI of thoracic spine shows T6-12 wedge deformities, T7-8 disc protrusion. Pt demonstrates severely kyphotic spine and scoliotic curvature as well, lateral shift of torso to right in sitting and standing, sacral sitting posture as well. Thoracic ROM limited left greater than right . Pt demonstrates sitting with improved scapular positioning though this does not have an effect on her pain. Pt will benefit from physical therapy to improve postural alignment, decreased pain, meet patient goals to return to PLOF. Plan of Care Interventions Electrical Stimulation,Hot Pack/Cold Pack,Manual Therapy,Neuro Re-education,Patient/Caregiver Education,Therapeutic Activities,Therapeutic Exercise,Self-Care/Home Management,Ultrasound, Other Other Interventions bracing, taping, IASTM PT Services Indicated Yes Treatment Frequency and 2 x 10 visits Duration These treatments will address the objective and functional deficits as defined above. The patient will be advanced safely and appropriately in order for the patient to progress towards his/her prior level of function. Additional exercises will be introduced and as well as a comprehensive home exercise program upon discharge, if needed, ?to ensure carryover of functional gains achieved in the clinic. This treatment plan has been reviewed and agreement upon by the patient.
--- NOTE | 2024-10-04 13:01 | OPREHPOC ---
Outpatient Therapy Plan of Care This is a Multidisciplinary Plan of Care that may contain components documented by all disciplines (PT, OT, and ST.) PT Problem 1 PT Problem #1 Knowledge Deficit PT Goal 1 Goal / Goal Update Pt will be independent in HEP Pt will verbalize understanding of diagnosis and prognosis Target Visit 5 PT Problem 2 PT Problem #2 Pain PT Goal 1 Goal / Goal Update Pt will report lowest pain rating at 0/10 to show improvement in overall discomfort Target Visit 5 PT Goal 2 Goal / Goal Update Pt will report greatest pain level at 3/10 or less to improve ADLs and activities Target Visit 10 PT Problem 3 PT Problem #3 Impaired Endurance PT Goal 1 Goal / Goal Update Pt will demonstrate appropriate sitting posture 50 % of session with cueing Target Visit 5 PT Goal 2 Goal / Goal Update Pt will demonstrate appropriate sitting alignment 75% of session without cueing Target Visit 10 PT Problem 4 PT Problem #4 Impaired Range of Motion PT Goal 1 Goal / Goal Update Pt will demonstrate equal thoracic ROM Target Visit 5 PT Goal 2 Goal / Goal Update Pt will demonstrate thoracic ROM 75% or greater Target Visit 10
--- NOTE | 2024-11-09 16:30 | PTOPDC ---
Assessment and note entered by Nat Strauss, PT Evaluation Information Assessment Status Discharge Diagnosis thoracic kyphosis ICD-10 Condition Codes (PT) Pain in Thoracic Spine M54.6,Weakness R53.1 Other ICD-10 Condition Codes ( Abnormal posture PT) Onset January 2024 Subjective Information Cont to be taking gabapentin 1200 daily Since starting therapy has only had one flare up into LUE not past elbow. Has had second shot in thoracic at T6-7 and is little sore from this but ok. No chest pain today, back and shoulder is a 4/10 Feels better overall, was miserable before. Is not as miserable , has helped with the movement and ability to move. Still unable to lay on back. Sitting can a little longer but still not great, is still up and down a lot with vari desk. Prolonged sitting cont to increase discomfort. Has been consistent in her HEP, reports being up to the green band level with strengthening Reported Pain Level Pain Score 4,0: Self Report Assessment PT Clinical Summary Pt has attended therapy consistently for thoracic back pain and pain into left shoulder and LUE. She shows flexible scoliotic curvature without leg length discrepancy, decreased ROM thoracic spine ( though improved and equal after therapy), increased kyphosis and forward head. Her reports of pain appear to be related to thoracic radiculopathy or referred pain from the T6 area. She does have decreased pain overall from 10/10 in the upper back to 8/10 at worst, and left shoulder/LUE/chest area decreased from 10/10 to 6/ 10. Since starting therapy she has also had two shots from pain management first at the T8-9 level and second pt reports was one level above with the second shot appearing to have improved discomfort more so than the first. However her alignment continues to show curvature which though is able to correct with tactile cueing and assist , she is unable to maintain neutral alignment in the frontal plan independently. Pt may benefit from scoliosis bracing to decrease pain by assisting in supporting neutral alignment and hopefully assisting in predatory animal exterminator alignment maintenance. However physical therapy appears to have been minimally effective for her issues thus we are discharging from her current POC. Plan of Care PT Services Indicated No
== END 2024-11-10 09:30 | disposition home or self-care (01) ==
LOC: ANHHIPT 15:30
PROVIDERS: PCP Family Medicine; Visit Provider Nurse Practitioner Adult Health
DX: M40.204 Unspecified kyphosis, thoracic region (principal); M54.14 Radiculopathy, thoracic region
CPT/HCPCS: 97014; 97035; 97110; 97112; 97140; 97163; 97750; G0283